=== PATIENT | female | born 1980 | race Caucasian/White ===

== ENCOUNTER 2017-03-16 19:21 | Emergency (ER) | payer OTHER ==
[~2017-03-16] VITALS: Ht 167.6 cm; Wt 90.7 kg
[2017-03-17] MEDS ORDERED: CIPRO500 MG PO (14:04)
== END 2017-03-17 14:03 | disposition home or self-care (01) ==
LOC: ER 19:21 → EDBD 19:40 → ER 19:40
DX: N39.0 Urinary tract infection, site not specified (principal); R10.814 Left lower quadrant abdominal tenderness